=== PATIENT | male | born 1970 | race Caucasian/White ===

== ENCOUNTER 2019-06-26 22:17 | Emergency (ER) | payer MEDICARE, OTHER ==
--- NOTE | 2019-06-26 22:32 | ED ---
Altered Mental Status - HPI Summary HPI Summary: Patient with history of brain cancer and baseline gait instability complains of mechanical fall with head injury and laceration above right eye. Fianc states patient at baseline prior to fall. Positive EtOH today, estimated 8 beers over the course of the day. History of 8-10 beers a day over the past 3 weeks. Patient followed at [facility] in [place]. Denies LOC, vision change, N/ V, neck pain, fever, cough, sore throat, CP, SOB, abdominal pain, change in urine, change in BM. - History Of Current Complaint Chief Complaint: EDSubstanceAbuse Stated Complaint: ETOH PER EMS Hx Obtained From: Patient Onset/Duration: Still Present Timing: Constant Severity Initially: Moderate Severity Currently: Moderate Character: Confusion Aggravating Factor(s): Nothing Alleviating Factor(s): Nothing - Allergies/Home Medications Allergies/Adverse Reactions: Allergies Allergy/AdvReac Type Severity Reaction Status Date / Time Penicillins Allergy Unknown Verified 06/26/19 22:57 Reaction Details Home Medications: Home Medications L.acidoph,Paracasei, B.lactis [Probiotic] 1 each PO DAILY 06/26/19 [History Confirmed 06/26/19] Levothyroxine TAB* [Synthroid TAB*] 50 mcg PO QAM 06/26/19 [History Confirmed ] Lisinopril/HCTZ 20/25(NF) [Zestoretic 20/25(NF)] 1 tab PO DAILY 06/26/19 [ History Confirmed 06/26/19] Omeprazole CAP (NF) [Prilosec CAP* 20 MG] 20 mg PO QAM 06/26/19 [History Confirmed 06/26/19] Sulfamethox/Trimethoprim DS* [Bactrim DS 800/160 TAB*] 1 tab PO MOWEFR 06/26/19 [History Confirmed 06/26/19] hydroCHLOROthiazide [Hydrochlorothiazide] 25 mg PO DAILY 06/26/19 [History Confirmed 06/26/19] predniSONE [Prednisone 5 MG TAB] 5 mg PO DAILY 06/26/19 [History Confirmed 06/26] PMH/Surg Hx/FS Hx/Imm Hx Endocrine/Hematology History: Denies: Hx Anticoagulant Therapy Cardiovascular History: Denies: Hx Pacemaker/ICD History: Denies: Hx Dialysis Sensory History: Denies: Hx Eye Prosthesis Opthamlomology History: Denies: Hx Legally Blind EENT History: Denies: Hx Deafness Neurological History: Denies: Hx Dementia Infectious Disease History: No Infectious Disease History: Denies: Traveled Outside the [place] in Last 30 Days - Family History Known Family History: Positive: Non-Contributory - Social History Alcohol Use: Occasionally Alcohol Amount: 4 BEERS Substance Use Type: Reports: None Smoking Status (MU): Never Smoked Tobacco Review of Systems Constitutional: Negative Eyes: Negative ENT: Negative Cardiovascular: Negative Respiratory: Negative Gastrointestinal: Negative Genitourinary: Negative Musculoskeletal: Negative Skin: Other Neurological: Negative Psychological: Normal All Other Systems Reviewed And Are Negative: Yes Physical Exam - Summary Physical Exam Summary: Patient confused during neuro exam. Alert to person and birthday. Laceration to the right side forehead multiple minor abrasions on face with gravel involved. Full range of motion of jaw and neck. No pain with palpation of back , chest, abdomen. Patient moves all 4 extremities freely. Triage Information Reviewed: Yes Vital Signs On Initial Exam: Initial Vitals Temp Pulse Resp BP Pulse Ox 97.7 F 98 14 128/78 97 06/26/19 22:20 06/26/19 22:20 06/26/19 22:20 06/26/19 22:20 06/26/19 22:20 Vital Signs Reviewed: Yes Appearance: Positive: Well-Appearing Skin: Positive: Warm Head/Face: Positive: Normal Head/Face Inspection Eyes: Positive: Normal ENT: Positive: Normal ENT inspection Dental: Negative: Dental Fracture @, Bleeding Neck: Positive: Supple Respiratory/Lung Sounds: Positive: Clear to Auscultation Cardiovascular: Positive: Normal Abdomen Description: Positive: Nontender Musculoskeletal: Positive: Normal Neurological: Positive: Other - Patient unable to understand nose to finger test , or heel from knee to ankle test due to confusion. Neuro exam otherwise normal. Psychiatric: Positive: Normal AVPU Assessment: Alert - Leonard Coma Scale Best Eye Response: 4 - Spontaneous Best Motor Response: 6 - Obeys Commands Best Verbal Response: 4 - Confused Coma Scale Total: 14 Diagnostics - Vital Signs Vital Signs Temp Pulse Resp BP Pulse Ox 06/26/19 22:20 97.7 F 98 14 128/78 97 - Laboratory Result Diagrams: 06/26/19 22:55 06/26/19 22:55 Lab Statement: Any lab studies that have been ordered have been reviewed, and results considered in the medical decision making process. Altered Mental Statu Course/Dx - Course Course Of Treatment: Do Patient with history of brain cancer and baseline gait instability complains of mechanical fall with head injury and laceration above right eye. Fianc states patient at baseline prior to fall. Positive EtOH today , estimated 8 beers over the course of the day. History of 8-10 beers a day over the past 3 weeks. Patient followed at [facility] in [place]. Denies LOC, vision change, N/V, neck pain, fever, cough, sore throat, CP, SOB, abdominal pain, change in urine, change in BM. Vital signs within normal limits. Lactic 2.7. 2 L normal saline administered. Ammonia 8.4. Lactulose 30 mg administered by mouth. EtOH 200. Labs otherwise unremarkable. CT brain positive for low attenuation area with calcifications in the left occipital and parietal lobe extending up to the posterior horn of the left lateral ventricle with mild mass effect on the posterior horn. No midline shift. Findings are concerning for vasogenic edema consistent with patient's given history of known brain tumor. Further evaluation with contrast-enhanced MRI examination is recommended. No evidence of hemorrhage. Patient had altered mental status during history of present illness. Question whether altered mental status secondary to brain edema noticed on CT versus EtOH vs elevated ammonia level. Patient's fianc had results from MRI report from [place] completed in May of this year on her phone which mentions vasogenic brain edema secondary to cancer. Concern whether current edema is worse than chronic edema. Waiting on images to push from [place] to compare current edema (found on CT brain today ) versus prior images. Patient's altered mental status improving on reexam. Patient alert and oriented to person, place and time. Able to complete neuro exam without confusion. Neuro exam normal. Patient ambulated to the bathroom on his own with baseline gait instability. Fianc confirms patient at baseline. No evidence of WAM. Laceration cleaned and sutured. Lactulose for elevated ammonia level. Patient continues to deny any symptoms. Patient signed out to Dr. Booth pending prior brain imaging from [place] being made available for comparison by [facility]. - Diagnoses Provider Diagnoses: Alcohol intoxication, Increased ammonia level, Brain edema, Facial laceration, Brain cancer Discharge ED - Sign-Out/Discharge Documenting (check all that apply): Sign-Out Patient Signing out patient TO: Brenda Booth Patient Received Moderate/Deep Sedation with Procedure: No - Discharge Plan Condition: Stable Disposition: HOME Patient Education Materials: Care For Your Stitches (ED), Alcohol Intoxication (ED) Referrals: Kenneth Gutierrez JR, PA [Physician Retail Route Supervisor] - Additional Instructions: Please increase your Decadron to 2mg twice a day, as recommended by your oncologist. Please follow up with your oncologist as soon as possible, call for the next available appointment. Get your sutures removed in 5-10 days. Your ammonia levels were abnormal today. Call your primary care provider within 2-3 days to discuss this. Return to the emergency department with any new or worsening symptoms. - Billing Disposition and Condition Condition: STABLE Disposition: Home
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
[2019-06-26 23:06] LABS: ABS Basophils 0.1 10^3/ul (0-0.2); ABS Eosinophils 0.1 10^3/ul (0-0.6); ABS Lymphocytes 1.7 10^3/ul (1.0-4.8); ABS Monocytes 0.7 10^3/ul (0-0.8); ABS Neutrophils 5.2 10^3/ul (1.5-7.7); Eosinophil % 1.2 %; Hematocrit 43 % (42-52); Hemoglobin 14.5 g/dL (14.0-18.0); Lymphocyte % 21.3 %; Mean Corpuscular HGB Conc 34 g/dL (31-36); Mean Corpuscular Hemoglobin 32 pg (27-31); Mean Corpuscular Volume 94 fL (80-94); Mean Platelet Volume 8.1 fL (7.4-10.4); Platelet Count 221 10^3/uL (150-450); Red Blood Count 4.56 10^6 /uL (4.18-5.48); Red Cell Distribution Width 15 % (10-15); White Blood Count 7.8 10^3/uL (3.5-10.8)
[2019-06-26 23:42] LABS: Albumin 4.2 g/dL (3.2-5.2); Anion Gap 12 mmol/L (2-11); CO2 Carbon Dioxide 24 mmol/L (22-32); Calcium 10.1 mg/dL (8.6-10.3); Chloride 101 mmol/L (101-111); Potassium 3.9 mmol/L (3.5-5.0); Sodium 137 mmol/L (135-145)
[2019-06-26 23:47] LABS: Alcohol 200 mg/dL (<10); Salicylate < 2.50 mg/dL (<30)
[2019-06-26 23:48] LABS: ALT 70 U/L (7-52); AST 63 U/L (13-39); Albumin/Globulin Ratio 1.9 (1-3); Alkaline Phosphatase 58 U/L (34-104); BUN/Creatinine Ratio 16.9 (8-20); Blood Urea Nitrogen 13 mg/dL (6-24); C Reactive Protein 5.14 mg/L (<8.01); EGFR African American 129.9 (>60); EGFR Non-African American 107.4 (>60); Globulin 2.2 g/dL (2-4); Glucose 97 mg/dL (70-100); Total Protein 6.4 g/dL (6.4-8.9)
[2019-06-27] MEDS ORDERED: NS 0.9% 1000 ML** 2,000 ML IV ONE (00:14)
--- NOTE | 2019-06-27 07:30 | ED ---
Progress - Progress Note Progress Note: Pt is a signout from Dr. Booth at 0700 on 06/27/19 pending repeat labs and disposition. Course/Dx - Course Course Of Treatment: Pt is a signout from Dr. Booth at 0700 on 06/27/19 pending repeat labs and disposition. I spoke with Dr. Snyder at 0907 about the pt s present condition, as well as abnormal lab results. He recommended to increase the Decadron to 2mg BID, and to have the pt call the office for the first available appointment. He has no prior ammonia levels, and should follow up with his PCP about that. I suspect that the pts sx developed d/t acute alcohol intoxication. The pt currently feels better, has a steady gait, and is stable for discharge. - Diagnoses Provider Diagnoses: Alcohol intoxication, Increased ammonia level, Brain edema, Facial laceration, Brain cancer Discharge ED - Sign-Out/Discharge Documenting (check all that apply): Patient Departure, Receiving Sign-Out Receiving patient FROM: Brenda Booth Patient Received Moderate/Deep Sedation with Procedure: No - Discharge Plan Condition: Stable Disposition: HOME Patient Education Materials: Care For Your Stitches (ED), Alcohol Intoxication (ED) Referrals: Kenneth Gutierrez JR, PA [Physician [facility] [employer] [facility] [employer]] - Additional Instructions: Please increase your Decadron to 2mg twice a day, as recommended by your oncologist. Please follow up with your oncologist as soon as possible, call for the next available appointment. Get your sutures removed in 5-10 days. Your ammonia levels were abnormal today. Call your primary care provider within 2-3 days to discuss this. Return to the emergency department with any new or worsening symptoms. - Billing Disposition and Condition Condition: STABLE Disposition: Home - Attestation Statements Document Initiated by Scribe: Yes Documenting Scribe: Trudi Hdez Provider For Whom Joleneibosiris is Documenting (Include Credential): Armin Gambino MD. Scribe Attestation: Trudi Tapia scribed for Armin Gambino MD. on 06/30/19 at 0737. Scribe Documentation Reviewed: Yes Provider Attestation: The documentation as recorded by the scribeTrudi accurately reflects the service I personally performed and the decisions made by Armin wang MD. Status of Scribe Document: Viewed Consult Consult: I spoke with Dr. Snyder at 0907 about the pts present condition, as well as abnormal lab results. He recommended to increase the Decadron to 2mg BID, and to have the pt call the office for the first available appointment. He has no prior ammonia levels, and should follow up with his PCP about that.
[2019-06-27] MEDS ORDERED: Dexamethasone IV* 4 MG/ML 1 ML (4 MG) IV SLOW PU ONE (09:06)
[2019-06-27] MEDS ORDERED: Dexamethasone TAB* 4 MG PO ONE (09:26)
[2019-06-27 09:47] VITALS: BP 145/122
[2019-06-28] MEDS ORDERED: Dexamethasone TAB* 4 MG PO SCH (09:00)
== END 2019-06-27 09:45 | disposition home or self-care (01) ==
LOC: ED 22:17
DX: F10.129 Alcohol abuse with intoxication, unspecified (principal); E72.20 Disorder of urea cycle metabolism, unspecified; G93.6 Cerebral edema; S01.81XA Laceration without foreign body of other part of head, initial encounter; W19.XXXA Unspecified fall, initial encounter; Y92.9 Unspecified place or not applicable; R26.81 Unsteadiness on feet; C71.9 Malignant neoplasm of brain, unspecified; Z79.899 Other long term (current) drug therapy; Z88.0 Allergy status to penicillin
CPT/HCPCS: 12011; 36415; 70450; 80053; 80320; 80329; 82140; 83605; 84484; 85025; 86140; 96360; 99284; A9270-GY; G0480; J8540